=== PATIENT | female | born 1975 | race Caucasian/White ===

== ENCOUNTER 2024-10-16 08:18 | Outpatient (AMB) | payer OTHER, SELFPAY ==
--- NOTE | 2024-10-16 08:30 | A.OFFVIS_ITS ---
Vital Signs 10/16/24 08:32 Height 5 ft 3 in Weight 188 lb 8 oz BMI 33.4 BP 118/72 Blood Pressure Location Rt brachial Position Sitting Pulse 94 Pulse Source Pulse Oximeter Pulse Oximetry (%) 97 Oxygen Delivery Method Room Air Intake Visit Reasons: 08/05LVM+Let ENP- Botox for Facial Spasms Intake Note: patient referred [facility] primary care facial spasm. Allergies sulfur dioxide Allergy (Unknown, Verified 10/16/24 08:33) Unknown bactrim Allergy (Unknown, Uncoded 10/16/24 08:33) Unknown Medication List - Last Reconciled 10/16/24 by Larisa Hale MD levonorgestrel (Mirena) intrauterine multivitamin 1 tab PO DAILY onabotulinumtoxinA (Botox) units IM HPI Comments Details: 49y/o Right handed female with chronic left hemifacial spasm tretae diwth botox for about 17 years comes for further managemnt. she was getting treatment at [facility] with Dr. Francisco , prior to that it was with . Her last treatment was February 2024 - since Dr. Francisco left the [facility] she was unable to get treatment. The spasm have increased and it affects socially . she denies pain. she garcia spoor sleep, anxious because of movements. she has had multipl evaluations including MRI MRA EEG etc [facility] Medical History (Updated 10/16/24 @ 08:45 by Larisa Hale MD) Hemifacial spasm of left side of face Osteoarthritis of right hand Tobacco abuse Panic disorder IBS (irritable bowel syndrome) Drug abuse Hemifacial spasm GERD (gastroesophageal reflux disease) Dyspepsia History of crack cocaine use Clonic hemifacial spasm Blepharospasm Bipolar 1 disorder Anxiety and depression Surgical History History of liver biopsy H/O LEEP Family History Sister Diabetes Social History Patient Tobacco Use Status: Current everyday Tobacco user Physical Exam Vital Signs: BMI result Body Mass Index 33.4 Const General: cooperative, healthy appearing, comfortable and no acute distress Nutritional Appearance: overweight Orientation/consciousness: patient oriented x3 Eyes Pupils: Equal, round and reactive pupils present Neuro Other: left hemifacial spasm - contraction of orbiculatis oculi, zygomaticus ,pterygoids,masseter, orbicularis ac and mentalis on the left General: patient oriented x3, gait normal, tone normal, moves all extremities and no focal motor deficits Cranial nerves: Yes Facial sensation intact/muscles of mastication intact, Yes Equal, round and reactive pupils present, Yes Bilaterally intact EOM present, Yes Nystagmus not present, Yes Normal facial strength present, Yes Midline tongue present and Yes Symmetric palate elevation present Cognition (Neuro): normal cognition Gait exam (Neuro): Normal gait present Motor exam (neuro): 5/5 motor strength present throughout and Normal motor muscle tone present throughout Deep tendon reflexes (DTR's): Right triceps reflex intensity grade: 1+, Left triceps reflex intensity grade: 1+, Rt Biceps (C5, C6): 1+, Left biceps reflex intensity grade: 1+, Right brachioradialis reflex intensity grade: 1+, Left brachioradialis reflex intensity grade: 1+, Right patellar reflex intensity grade: 1+ and Left patellar reflex intensity grade: 1+ Coordination: [id number]-ww-[id number] test normal Assessment & Plan Assessment & Plan (1) Hemifacial spasm of left side of face: Code(s): G51.32 - Clonic hemifacial spasm, left Category: Medical Plan I will restart her on Botulinum toxis tretament for hemifacial spasm will get prior auth form insurance and schedule . Coding Level of Care Code New Pt Level 4 (74120) Diagnoses Hemifacial spasm of left side of face G51.32
[2024-10-16 08:32] VITALS: BP 118/72; PULSE 94; O2SAT 97; BMI 33.4
--- OUTSIDE RECORDS SUMMARY | 2024-10-16 08:43 | XMS_ITS | Clinical Summary ---
Author Organization [facility] Address [address] [place] [address] Care Team Providers Care Bucket Chucker Name Role Phone Miguelangel Brody NP Primary Care Provider [phone] Source Comments PLEASE NOTE, if this patient is a minor, it may be UNLAWFUL to discuss sensitive information that is contained in these records (such as FAMILY PLANNING, MENTAL HEALTH or SUBSTANCE ABUSE) with the minor patient's parent or other person without the patient's specific authorization.[facility] Allergies Active Allergy Reactions Criticality Noted Date Comments Sulfamethoxazole-Trimethoprim 2012 Medications gabapentin (NEURONTIN) 100 mg tabletIndication s:Anxiety Take 100 mg by mouth 3 (three) times daily. Indications: Anxiety Active lithium 600 mg capsuleIndicatio ns:bipolar disorder Take 600 mg by mouth 2 (two) times daily. Indications: Bipolar Disorder Active azithromycin (ZITHROMAX Z-LISSETH) 250 mg tabletIndication s:Upper respiratory infection Take two tabs by mouth on the first day; then take one tab by mouth on the second , third, fourth day 5 Tab 0 3 Active pseudoephedrine- guaiFENesin (MUCINEX D) 60-600 mg per 12 hr tabletIndication s:Upper respiratory infection Take 1 Tab by mouth 3 (three) times daily. Swallow whole. Do not crush or chew. 30 Tab 2 3 Active ascorbic acid (VITAMIN C) 500 mg tabletIndication s:Upper respiratory infection Take 1 Tab by mouth once daily. 30 Tab 2 3 Active Active Problems Problem Noted Date Diagnosed Date [place] use 07/09/2013 Anxiety 06/10/2013 Bipolar 1 disorder ([facility]) 06/10/2013 Hemifacial spasm 06/10/2013 Hx of hepatitis C 06/10/2013 Seasonal allergies 06/10/2013 Resolved Problems Problem Noted Date Diagnosed Date Resolved Date Sore throat 07/08/2013 04/08/2021 Upper respiratory infection 07/08/2013 04/08/2021 Immunizations Name Administration Dates Next Due PPD 06/17/2013 Family History Medical History Relation Name Comments Asthma Father COPD, sleep rotary engine assembler ea Asthma Mother COPD Diabetes Sister juvenile Relation Name Status Comments Father Mother Sister Social History Tobacco Use Types Packs/Day Years Used Date Smoking Tobacco: Every Day Cigarettes 0.5 18 Smokeless Tobacco: Never Tobacco Cessation:Ready to Q uit: Yes; Counseling Given: Yes Comments:working on it independedntly for now Alcohol Use Standard Drinks/Week Comments Yes 2.5 (1 standard drink = 0.6 oz p ure alcohol) Social Connections Answer Date Recorded Social Connections and Isolation 0 04/12/2019 Financial Resource Strain Answer Date R ecorded Financial Resource Strain 0 2018 Stress Answer Date Recorded Stress 0 04/12/2019 Physical Activity Answer Date Recorded Physical Activity 0 04/12/2019 Food Insecurity Answer Date Recorded Food 0 04/12/2019 Transportation Needs Answer Date Record ed Transportation 0 04/12/2019 Housing Stability Answer Date Recorded Housing 0 04/12/2019 Safety and Environment Answer Date Mitch rded Safety 0 04/12/2019 Utilities Answer Date Recorded Utilities 0 04/12/2019 Employment Answer Date Recorded Employment 0 04/12/2019 Comments No Sex and Gender Information Value Date Recorded Sex Assigned at Not on file Legal Sex Female 5:22 AM PDT Gender Identity Not on file Sexual Orientation Not on file Last Filed Vital Signs Vital Sign Reading Time Taken Comments Blood Pressure 120/80 01/29/2014 10:46 AM EDT Pulse 86 01/29/2014 10:46 AM EDT Temperature 36.1 ??C (97 ??F) 01/29/2014 10:46 AM EDT Respiratory Rate 16 01/29/2014 10:46 AM EDT Oxygen Saturation - - Inhaled Oxygen Concentration - - Weight 78.9 kg (174 lb) 01/29/2014 10:46 AM EDT Height 160 cm (5' 3 ) 01/29/2014 10:46 AM EDT Body Mass Index 30.82 01/29/2014 10:46 AM EDT Plan of Treatment Not on file [place] Subscriber Plan / Payer (Ef fective 2013-Present) Name:Emilee Villalta Relation to Subscriber:Self Name:Emilee Villalta Payer ID:[id number] Group ID:[id number] Type:Medicaid Address: [facility] [id number] [place] [address] [place] [address] PLAN COM Care Teams Bucket Chucker Relationship Specialty Start Date End Date Miguelangel Brody NP [address] [place] [address] PCP - General 06/27/18
== END 2024-10-16 09:23 | disposition home or self-care (01) ==
PROVIDERS: PCP Internal Medicine; Visit Provider Psychiatry & Neurology Neurology
DX: G51.32 Clonic hemifacial spasm, left (principal)
CPT/HCPCS: 99204

== ENCOUNTER → 2024-10-16 08:18 | Outpatient (BNVA) | payer OTHER, SELFPAY | PROVIDERS: PCP Internal Medicine; Visit Provider Psychiatry & Neurology Neurology | DX: G51.32 Clonic hemifacial spasm, left (principal) | CPT/HCPCS: 99202 ==

== ENCOUNTER 2024-11-11 15:30 | Outpatient (AMB) | payer OTHER, SELFPAY ==
--- NOTE | 2024-11-11 15:32 | A.OFFVIS_ITS ---
Vital Signs 11/11/24 15:39 Height 5 ft 3 in Weight 188 lb BMI 33.3 Intake Visit Reasons: Botox Intake Note: Patient presents for botox injection Practice supplied Allergies sulfur dioxide Allergy (Unknown, Verified 11/11/24 15:32) Unknown bactrim Allergy (Unknown, Uncoded 11/11/24 15:32) Unknown Medication List - Last Reconciled 11/11/24 by Larisa Hale MD levonorgestrel (Mirena) intrauterine multivitamin 1 tab PO DAILY onabotulinumtoxinA (Botox) units IM HPI Comments Details: 49y/o female comes for treatment of her left hemifacial spasm with botox Botulinum toxin type A Lot no [id number] Exp 12/2026 was diluted with 2 cc of normal saline at a concentration of 5 units in 0.1 cc. Side effects were discussed and an informed consent was obtained. Muscles injected left Lateral canthus - 15 units each left Lateral Lower eyelid-15 units each Left medial lowereyelid- 5 units each Left Nasolabial fold 5 units each left mentalis 10 units each Left pterygoid 10units Total used 60 units discarded 40 units PFSH Medical History Hemifacial spasm of left side of face Osteoarthritis of right hand Tobacco abuse Panic disorder IBS (irritable bowel syndrome) Drug abuse Hemifacial spasm GERD (gastroesophageal reflux disease) Dyspepsia History of crack cocaine use Clonic hemifacial spasm Blepharospasm Bipolar 1 disorder Anxiety and depression Surgical History History of liver biopsy H/O LEEP Family History Sister Diabetes Social History Patient Tobacco Use Status: Current everyday Tobacco user Physical Exam Vital Signs: BMI result Body Mass Index 33.3 Const General: cooperative, healthy appearing, comfortable and no acute distress Nutritional Appearance: overweight Orientation/consciousness: patient oriented x3 Eyes Pupils: Equal, round and reactive pupils present Neuro Other: left hemifacial spasm - contraction of orbiculatis oculi, zygomaticus ,pterygoids,masseter, orbicularis ac and mentalis on the left General: patient oriented x3, gait normal, tone normal, moves all extremities and no focal motor deficits Cranial nerves: Yes Facial sensation intact/muscles of mastication intact, Yes Equal, round and reactive pupils present, Yes Bilaterally intact EOM present, Yes Nystagmus not present, Yes Normal facial strength present, Yes Midline tongue present and Yes Symmetric palate elevation present Cognition (Neuro): normal cognition Gait exam (Neuro): Normal gait present Motor exam (neuro): 5/5 motor strength present throughout and Normal motor muscle tone present throughout Coordination: kywrlf-er-ksrr test normal Office Procedures Botulinum toxin Injection 40558 - Facial Nerve Procedure code (CPT) selection complete Office Meds onabotulinumtoxinA 100 unit solution for injection Performing Provider: Larisa Hale MD Performing [place] [facility] Administered by: Larisa Hale MD on 11/11/24 16:04 Dose Route Admin Location Dispensed Lot Number Expiration Date [facility] Records Management Engineer 60 unit subcut 100 units [id number] [employer] Comments: see hpi Assessment & Plan Assessment & Plan (1) Hemifacial spasm of left side of face: Code(s): G51.32 - Clonic hemifacial spasm, left Category: Medical Plan Patient tolerated the procedure well she will call with any side effects Orders: Orders AMB Botulinum toxin Injection Today G51.32 - Clonic hemifacial spasm, left Medications: New onabotulinumtoxinA 100 units subcut ONCE 1 ea 0RF hemifacial spasm G51.32 - Clonic hemifacial spasm, left Coding Level of Care Code Est Pt Level 1 (89323) Diagnoses Hemifacial spasm of left side of face G51.32 CPT Codes Botox Injection - Botox 2: 82474 - Facial Nerve ([id number])
[2024-11-11 15:39] VITALS: BMI 33.3
== END 2024-11-11 16:01 | disposition home or self-care (01) ==
LOC: HO.HSMS 15:31
PROVIDERS: PCP Internal Medicine; Visit Provider Psychiatry & Neurology Neurology
DX: G51.32 Clonic hemifacial spasm, left (principal)
CPT/HCPCS: 64612

== ENCOUNTER → 2024-11-11 15:30 | Outpatient (BNVA) | payer OTHER, SELFPAY | PROVIDERS: PCP Internal Medicine; Visit Provider Psychiatry & Neurology Neurology | DX: G51.32 Clonic hemifacial spasm, left (principal) | CPT/HCPCS: 64612; 99211; J0585 ==

== ENCOUNTER 2025-02-24 14:21 | Outpatient (AMB) | payer OTHER, SELFPAY ==
[2025-02-24 14:25] VITALS: BMI 33.3
--- NOTE | 2025-02-24 14:25 | MHC.OFFVIS ---
Vital Signs 02/24/25 14:25 Height 5 ft 3 in Weight 188 lb BMI 33.3 Intake Visit Reasons: Botox Intake Note: Patient presents for botox injection. pharmacy supplied. Allergies sulfur dioxide Allergy (Unknown, Verified 02/24/25 14:27) Unknown bactrim Allergy (Unknown, Uncoded 02/24/25 14:27) Unknown Medication List - Last Reconciled 02/24/25 by Larisa Hale MD levonorgestrel (Mirena) intrauterine multivitamin 1 tab PO DAILY onabotulinumtoxinA (Botox) units IM HPI Comments Details: 49y/o female comes for treatment of her left hemifacial spasm with botox Botulinum toxin type A Lot no [id number] Exp 05/2027 was diluted with 2 cc of normal saline at a concentration of 5 units in 0.1 cc. Side effects were discussed and an informed consent was obtained. Muscles injected left Lateral canthus - 15 units each left Lateral Lower eyelid-15 units each Left medial lowereyelid- 5 units each Left Nasolabial fold 5 units each left mentalis 10 units each Left pterygoid 10units Total used 60 units discarded 40 units [facility] Medical History Hemifacial spasm of left side of face Osteoarthritis of right hand Tobacco abuse Panic disorder IBS (irritable bowel syndrome) Drug abuse Hemifacial spasm GERD (gastroesophageal reflux disease) Dyspepsia History of crack cocaine use Clonic hemifacial spasm Blepharospasm Bipolar 1 disorder Anxiety and depression Surgical History History of liver biopsy H/O LEEP Family History Sister Diabetes Social History Patient Tobacco Use Status: Current everyday Tobacco user Physical Exam Vital Signs: BMI result Body Mass Index 33.3 Const General: cooperative, healthy appearing, comfortable and no acute distress Nutritional Appearance: overweight Orientation/consciousness: patient oriented x3 Eyes Pupils: Equal, round and reactive pupils present Neuro Other: left hemifacial spasm - contraction of orbiculatis oculi, zygomaticus ,pterygoids,masseter, orbicularis ac and mentalis on the left General: patient oriented x3, gait normal, tone normal, moves all extremities and no focal motor deficits Cranial nerves: Yes Facial sensation intact/muscles of mastication intact, Yes Equal, round and reactive pupils present, Yes Bilaterally intact EOM present, Yes Nystagmus not present, Yes Normal facial strength present, Yes Midline tongue present and Yes Symmetric palate elevation present Cognition (Neuro): normal cognition Gait exam (Neuro): Normal gait present Motor exam (neuro): 5/5 motor strength present throughout and Normal motor muscle tone present throughout Coordination: vkepak-ua-cazk test normal Office Procedures Botulinum toxin Injection 28942 - Facial Nerve Procedure code (CPT) selection complete Office Meds onabotulinumtoxinA 100 unit solution for injection Performing Provider: Larisa Hale MD Performing Location[place] [facility] Administered by: Larisa Hale MD on 02/24/25 15:04 Dose Route Admin Location Dispensed Lot Number Expiration Date [facility] Fulling Mill Operator 60 unit subcut 100 units [id number] [employer] Total Dispensed Waste 100 units 40 % Comments: see HPI Assessment & Plan Assessment & Plan (1) Hemifacial spasm of left side of face: Code(s): G51.32 - Clonic hemifacial spasm, left Category: Medical Plan Patient tolerated the procedure well she will call with any side effects Orders: Orders AMB Botulinum toxin Injection Today G51.32 - Clonic hemifacial spasm, left Coding Level of Care Code Est Pt Level 1 (86790) Diagnoses Hemifacial spasm of left side of face G51.32 CPT Codes Botox Injection - Botox 2: 66203 - Facial Nerve ([id number])
--- OUTSIDE RECORDS SUMMARY | 2025-02-24 15:14 | XMS_ITS | Clinical Summary ---
Author Organization [facility] Address [address] [place] [address] Care Team Providers Care Lang Path Therapist Name Role Phone Miguelangel Brody NP Primary Care Provider [phone] Source Comments PLEASE NOTE, if this patient [...] Active Problems Problem Noted Date Diagnosed Date [place] use 07/09/2013 Anxiety 06/10/2013 Bipolar 1 disorder ([facility]) 06/10/2013 Hemifacial spasm 06/10/2013 Hx of hepatitis C 06/10/2013 Seasonal allergies 06/10/2013 Resolved Problems Problem Noted Date Diagnosed Date Resolved Date Sore throat 07/08/2013 04/08/2021 Upper respiratory infection 07/08/2013 04/08/2021 Immunizations Immunization Administration Dates Next Due PPD 06/17/2013 Family History Medical History Relation Name Comments Asthma Father COPD, sleep supervisor endless track vehicle ea Asthma Mother COPD Diabetes Sister juvenile [...] 86 01/29/2014 10:46 AM EDT Temperature 36.1 C (97 F) 01/29/2014 10:46 AM EDT Respiratory Rate 16 01/29/2014 10:46 AM EDT Oxygen Saturation - - Inhaled Oxygen Concentration - - Weight 78.9 kg (174 lb) 01/29/2014 10:46 AM EDT Height 160 cm (5' 3 ) 01/29/2014 10:46 AM EDT Body Mass Index 30.82 01/29/2014 10:46 AM EDT Plan of Treatment Not on file [place] Sub[place] Plan / Payer (Ef fective 2013-Present) Name:Emilee Villalta Relation to Subscriber:Self Name:Emilee Villalta Payer ID:[id number] Group ID:[id number] Type:Medicaid Address: [facility] [id number] [place] [address] [place] [address] PLAN COM Care Teams Lang Path Therapist Relationship Specialty Start Date End Date Miguelangel Brody NP [address] [place] [address] PCP - General 06/27/18
== END 2025-02-24 15:03 | disposition home or self-care (01) ==
LOC: HO.HSMS 14:22
PROVIDERS: PCP Internal Medicine; Visit Provider Psychiatry & Neurology Neurology
DX: G51.32 Clonic hemifacial spasm, left (principal)
CPT/HCPCS: 64612

== ENCOUNTER → 2025-02-24 14:21 | Outpatient (BNVA) | payer OTHER, SELFPAY | PROVIDERS: PCP Internal Medicine; Visit Provider Psychiatry & Neurology Neurology | DX: G51.32 Clonic hemifacial spasm, left (principal) | CPT/HCPCS: 64612; 99211; J0585 ==

== ENCOUNTER 2025-06-02 15:30 | Outpatient (AMB) | payer OTHER, SELFPAY ==
--- NOTE | 2025-06-02 15:31 | A.OFFVIS_ITS ---
Vital Signs 06/02/25 15:32 Height 5 ft 3 in Weight 180 lb 4 oz BMI 31.9 BP 116/70 Blood Pressure Location Rt brachial Position Sitting Pulse 101 H Pulse Source Pulse Oximeter Pulse Oximetry (%) 99 Oxygen Delivery Method Room Air Intake Visit Reasons: Botox Intake Note: Botox 100 units Oracle Database Consultant Required: No Accompanied by: Self / Same As Patient Allergies sulfur dioxide Allergy (Unknown, Verified 06/02/25 15:32) Unknown bactrim Allergy (Unknown, Uncoded 02/24/25 14:27) Unknown Medication List - Last Reconciled 06/02/25 by Larisa Hale MD acetaminophen 500 mg PO Q6-8H PRN ibuprofen 800 mg PO Q8H PRN levonorgestrel (Mirena) intrauterine multivitamin 1 tab PO DAILY onabotulinumtoxinA (Botox) units IM HPI Comments Details: 50y/o female comes for treatment of her left hemifacial spasm with botox Botulinum toxin type A Lot no [id number] Exp 06/2027 was diluted with 2 cc of normal saline at a concentration of 5 units in 0.1 cc. Side effects were discussed and an informed consent was obtained. Muscles injected left Lateral canthus - 20 units each left Lateral Lower eyelid-15 units each Left Nasolabial fold 5 units each left mentalis 10 units each Left pterygoid 10units Total used 60 units discarded 40 units PFSH Medical History Hemifacial spasm of left side of face Osteoarthritis of right hand Tobacco abuse Panic disorder IBS (irritable bowel syndrome) Drug abuse Hemifacial spasm GERD (gastroesophageal reflux disease) Dyspepsia History of crack cocaine use Clonic hemifacial spasm Blepharospasm Bipolar 1 disorder Anxiety and depression Surgical History History of liver biopsy H/O LEEP Family History Sister Diabetes Social History Patient Tobacco Use Status: Current everyday Tobacco user Physical Exam Vital Signs: Last Vital Signs Pulse 101 H 06/02/25 15:32 BP 116/70 06/02/25 15:32 Pulse Ox 99 06/02/25 15:32 Oxygen Delivery Method Room Air 06/02/25 15:32 BMI result Body Mass Index 31.9 Const General: cooperative, healthy appearing, comfortable and no acute distress Nutritional Appearance: overweight Orientation/consciousness: patient oriented x3 Eyes Pupils: Equal, round and reactive pupils present Neuro Other: left hemifacial spasm - contraction of orbiculatis oculi, zygomaticus ,pterygoids,masseter, orbicularis ac and mentalis on the left General: patient oriented x3, gait normal, tone normal, moves all extremities and no focal motor deficits Cranial nerves: Yes Facial sensation intact/muscles of mastication intact, Yes Equal, round and reactive pupils present, Yes Bilaterally intact EOM present, Yes Nystagmus not present, Yes Normal facial strength present, Yes Midline tongue present and Yes Symmetric palate elevation present Cognition (Neuro): normal cognition Gait exam (Neuro): Normal gait present Motor exam (neuro): 5/5 motor strength present throughout and Normal motor m uscle tone present throughout Coordination: [id number]-mr-escv test normal Office Procedures Botulinum toxin Injection 80595 - Facial Nerve Procedure code (CPT) selection complete Office Meds onabotulinumtoxinA 100 unit solution for injection Performing Provider: Larisa Hale MD Performing Location: [facility] Administered by: Larisa Hale MD on 06/02/25 15:54 Dose Route Admin Location Dispensed Lot Number Expiration Date [facility] Manager Merchandising 60 unit subcut 100 units [id number] [employer] Total Dispensed Waste 100 units 40 % Comments: see HPI Assessment & Plan Assessment & Plan (1) Hemifacial spasm of left side of face: Code(s): G51.32 - Clonic hemifacial spasm, left Category: Medical Plan Patient tolerated the procedure well she will call with any side effects Orders: Orders AMB Botulinum toxin Injection Today G51.32 - Clonic hemifacial spasm, left Coding Level of Care Code Est Pt Level 1 (47914) Diagnoses Hemifacial spasm of left side of face G51.32 CPT Codes Botox Injection - Botox 2: 89005 - Facial Nerve ([id number])
[2025-06-02 15:32] VITALS: BP 116/70; PULSE 101; O2SAT 99; BMI 31.9
--- OUTSIDE RECORDS SUMMARY | 2025-06-02 18:15 | XMS_ITS | Clinical Summary ---
Author Organization [facility] [employer] [facility] lin Address [address] [facility] [place] [address] Care Team Providers Care Product Merchandiser Name Role Phone No, Pcp [facility]ALTH SANITARIAN Primary Care Provider Unavailabl e Social History Tobacco Use Types Packs/Day Years Used Date Smoking Tobacco: Never Assessed Comments Unknown Sex and Gender Information Value Date Recorded Sex Assigned at Not on file Legal Sex Female 4:08 PM EDT Gender Identity Not on file Sexual Orientation Not on file Plan of Treatment Health Maintenance Due Date Last Done Comments Colorectal Cancer: [place] PY Screening every 10 yrs (or Modifier) 1976 Depression: Screening Annual ly using PHQ-2/9 in Adults 18 yrs or above (or HM Modifier)([facility]) 1994 Hepatitis C Virus Infection in Adolescents and Adults: Screening (or Modifier) ([facility]) [address] [facility] Screening Reminder: Karen dunne for all adults ([facility]) 1994 Tobacco Smoking Cessation: i n Adults excluding Women: Behavioral and Pharmacotherapy Interventions ([facility]) 1994 DTaP/Tdap/Td Vaccines ([facility]) (1 - Tdap) 1995 Cervical Cancer Screenin 1-65 yrs of age (or Modifier) 1997 Cervical Cancer Screening: P ap every 3 yrs pts age 21-65 1997 Cervical Cancer: Pap Screeni ng with Modifier timing ([facility]) 1997 Cervical Cancer: hrHPV alone or with cotesting Pap for Pts 30-65yrs screening every 5yrs ([facility]) 1997 Colorectal Cancer Screening 45 -75 Yrs (or HM Modifier) 2021 Colorectal Cancer: FLEXIBLE SIGMOIDOSCOPY Screening every 5 yrs 2021 Colorectal Cancer: Fecal Immunochemical Test (FIT) Annually [facility] 2021 Colorectal Cancer: High-sens itivity gFOBT Screening Annually [facility] 2021 Colorectal Cancer: Stool Col oguard Screening every 3 yrs 2021 Colorectal Cancer:CT Colonog rashaun Screening every 5 yrs 2021 Flu Vaccination: Yearly for ages 18mos through 64 years (or Modifier)([facility]) 03/20/2025 COVID-19 Vaccine Screening: Initial Series and Booster Status ([facility]) (2023- season) 2025 Zoster/Shingles Vaccine Seri es Screening: Adults aged 18+ yrs (or HM Modifiers)([facility]) (1 of 2) 2026 Pneumococcal Vaccination Scr eening: Pts 0-19 & 19-49 yrs of age ([facility]) Aged Out No longer eligible based on patient's age to complete this topic Medical Devices Not on file Care Teams Product Merchandiser Relationship Specialty Start Date End Date No, Pcp, PUBLIC HEALTH SANITARIAN N/A Do not use PCP - General Family Medicine 06/09/20
== END 2025-06-02 15:56 | disposition home or self-care (01) ==
LOC: HO.HSMS 15:30
PROVIDERS: PCP Internal Medicine; Visit Provider Psychiatry & Neurology Neurology
DX: G51.32 Clonic hemifacial spasm, left (principal)
CPT/HCPCS: 64612

== ENCOUNTER → 2025-06-02 15:30 | Outpatient (BNVA) | payer OTHER, SELFPAY | PROVIDERS: PCP Internal Medicine; Visit Provider Psychiatry & Neurology Neurology | DX: G51.32 Clonic hemifacial spasm, left (principal) | CPT/HCPCS: 64612; 99211; J0585 ==